=== PATIENT | male | born 1930 | race Caucasian/White ===

== ENCOUNTER 2016-08-24 21:13 | Inpatient (IN) | payer MEDICARE, BC ==
[~2016-08-24] VITALS: Ht 167.6 cm; Wt 65.8 kg
[2016-08-24] MEDS ORDERED: CALC600T20 PO (21:37)
[2016-08-24] MEDS ORDERED: AMLO5TAB2 PO (21:37)
[2016-08-24] MEDS ORDERED: POLY17PO4 PO (21:37)
[2016-08-24] MEDS ORDERED: CHOL10002 PO (21:37)
[2016-08-24] MEDS ORDERED: OMEG-11 PO (21:37)
[2016-08-24] MEDS ORDERED: BRIM5DRO3 EACHEYE (21:37)
[2016-08-24] MEDS ORDERED: BENA40TA2 PO (21:37)
[2016-08-24] MEDS ORDERED: FURO20TA4 PO (21:37)
[2016-08-24] MEDS ORDERED: DORZ10DR11 EACHEYE (21:37)
[2016-08-24] MEDS ORDERED: SIMV10TA6 PO (21:37)
[2016-08-24] MEDS ORDERED: BRIM5DRO3 LEFTEYE (21:37)
[2016-08-24] MEDS ORDERED: ASPI81TA2 PO (21:37)
[2016-08-24] MEDS ORDERED: MULT-213 PO (21:37)
[2016-08-24] MEDS ORDERED: DORZ10DR8 LEFTEYE (21:37)
[2016-08-24] MEDS ORDERED: SENN-18 PO (21:37)
[2016-08-24] MEDS ORDERED: PRED5DRO3 LEFTEYE (21:37)
[2016-08-24 21:45] LABS: BASOPHILS % (AUTO) 0.6 % (0.0-2.0); EOSINOPHILS # (AUTO) 0.3 /CMM (0.0-0.7); EOSINOPHILS % (AUTO) 5.3 % (0.0-6.0); HEMATOCRIT 43 % (39-51); HEMOGLOBIN 14.8 g/dL (13.5-17.5); LYMPHOCYTES # (AUTO) 0.8 /CMM (0.8-4.8); LYMPHOCYTES % (AUTO) 12.9 % (20.0-44.0); MEAN CORPUSCULAR HEMOGLOBIN 35 PG (26.0-33.0); MEAN CORPUSCULAR HGB CONC 34 g/dl (31.0-36.0); MEAN CORPUSCULAR VOLUME 102 fL (80-96); MONOCYTES # (AUTO) 0.7 /CMM (0.1-1.30); MONOCYTES % (AUTO) 10.6 % (2.0-12.0); NEUTROPHILS # (AUTO) 4.5 /CMM (1.8-8.9); NEUTROPHILS % (AUTO) 70.6 % (43.0-81.0); PLATELET COUNT (AUTO) 192 /CMM (150-450); RDW COEFFICIENT OF VARIATION 13.6 (11.5-15.0); RED BLOOD CELL COUNT(AUTO) 4.26 MIL/uL (4.5-6.0); WHITE BLOOD COUNT (AUTO) 6.4 K/uL (4.3-11.0)
[2016-08-24 21:57] LABS: CALCIUM, SERUM 9.6 mg/dL (8.5-10.1); CARBON DIOXIDE 30 mmol/L (21-32); CHLORIDE 104 mmol/L (98-107); GLUCOSE 105 mg/dL (74-106); POTASSIUM 3.8 mmol/L (3.5-5.1); SODIUM SERUM 143 mmol/L (136-145); UREA NITROGEN, BLOOD 17 mg/dL (7-18)
[2016-08-24 22:03] LABS: ALANINE AMINOTRANSFERASE 25 U/L (12-78); ALKALINE PHOSPHATASE 73 U/L (46-116); ASPARTATE AMINOTRANSFERASE 26 U/L (15-37); BILIRUBIN,DIRECT 0.1 mg/dL (0.0-0.2); BILIRUBIN,TOTAL 0.7 mg/dL (0.2-1.0); TOTAL PROTEIN, SERUM 7.8 g/dL (6.4-8.2)
[2016-08-24 22:07] LABS: INR 1.03 (0.87-1.13)
[2016-08-24 22:56] LABS: SERUM AMMONIA 19 umol/L (11-32); TROPONIN I < 0.017 ng/mL (0.00-0.056)
[2016-08-24 23:27] LABS: APPEARANCE,URINE CLEAR (CLEAR); BILIRUBIN,URINE NEGATIVE (NEGATIVE); BLOOD, URINE TRACE-INTA Ery/uL (NEGATIVE); COLOR,URINE YELLOW (YELLOW); KETONES,URINE NEGATIVE (NEGATIVE); LEUKOCYTE ESTERASE ,URINE NEGATIVE (NEGATIVE); NITRITE, URINE NEGATIVE (NEGATIVE); PROTEIN,URINE NEGATIVE (NEGATIVE); UGLUCOSE NEGATIVE (NEGATIVE); UROBILINOGEN,URINE 0.2 EU/dL (0.2)
[2016-08-24 23:43] LABS: BACTERIA,URINE None seen /HPF (None Seen); HYALINE CASTS, URINE Rare /LPF (None Seen); SQUAMOUS EPITHELIAL CELL,UR Rare /HPF (None Seen); URINE AMORPHOUS URATE Moderate /HPF (None Seen); WBC,URINE NONE SEEN /HPF (0-3)
[2016-08-25] VITALS (8 sets, daily range): BP systolic 120–141; BP diastolic 62–73
[2016-08-25] MEDS ORDERED: ACETAMINOPHEN 325 MG TABLET PO PRN (01:00)
[2016-08-25] MEDS ORDERED: Z GUARD REMEDY 2 OZ OINT TP PRN (01:00)
[2016-08-25] MEDS ORDERED: ZOLPIDEM TARTRATE 5 MG TABLET PO PRN (01:00)
[2016-08-25] MEDS ORDERED: SENNOSIDES 8.6 MG TABLET PO PRN (01:00)
[2016-08-25] MEDS ORDERED: MAGNESIUM HYDROXIDE 30 ML UDC PO PRN (01:00)
[2016-08-25] MEDS ORDERED: ONDANSETRON HCL/PF 4 MG/2 ML VIAL IVP PRN (01:00)
[2016-08-25] MEDS ORDERED: MAG HYDROX/AL HYDROX/SIMETH 30 ML UDC PO PRN (01:00)
[2016-08-25] MEDS ORDERED: HYDROCODONE/APAP 5/325MG 1 EACH TABLET ONE (01:58)
[2016-08-25] MEDS ORDERED: LATA2.5D7 EACHEYE (03:27)
[2016-08-25 04:27] LABS: BASOPHILS % (AUTO) 0.3 % (0.0-2.0); EOSINOPHILS # (AUTO) 0.2 /CMM (0.0-0.7); HEMATOCRIT 43 % (39-51); HEMOGLOBIN 14.6 g/dL (13.5-17.5); LYMPHOCYTES # (AUTO) 0.9 /CMM (0.8-4.8); LYMPHOCYTES % (AUTO) 9.4 % (20.0-44.0); MEAN CORPUSCULAR HEMOGLOBIN 35 PG (26.0-33.0); MEAN CORPUSCULAR HGB CONC 34 g/dl (31.0-36.0); MEAN CORPUSCULAR VOLUME 102 fL (80-96); MONOCYTES # (AUTO) 0.8 /CMM (0.1-1.30); MONOCYTES % (AUTO) 8.1 % (2.0-12.0); NEUTROPHILS # (AUTO) 7.9 /CMM (1.8-8.9); NEUTROPHILS % (AUTO) 80.2 % (43.0-81.0); PLATELET COUNT (AUTO) 180 /CMM (150-450); RED BLOOD CELL COUNT(AUTO) 4.22 MIL/uL (4.5-6.0); WHITE BLOOD COUNT (AUTO) 9.9 K/uL (4.3-11.0)
[2016-08-25] MEDS: HYDROCODONE/APAP 5/325MG 1 EACH TABLET PO PRN ×2 (04:44→21:38)
[2016-08-25 04:54] LABS: CALCIUM, SERUM 9.3 mg/dL (8.5-10.1); CARBON DIOXIDE 27 mmol/L (21-32); CHLORIDE 104 mmol/L (98-107); CREATININE 0.9 mg/dL (0.6-1.3); GLUCOSE 123 mg/dL (74-106); MAGNESIUM 1.9 mg/dL (1.8-2.4); PHOSPHORUS 2.3 mg/dL (2.5-4.9); POTASSIUM 3.4 mmol/L (3.5-5.1); SODIUM SERUM 142 mmol/L (136-145); UREA NITROGEN, BLOOD 16 mg/dL (7-18)
[2016-08-25] MEDS ORDERED: FUROSEMIDE 20 MG TABLET PO SCH (09:00)
[2016-08-25] MEDS: BENAZEPRIL HCL 20 MG TABLET PO SCH (09:00)
[2016-08-25] MEDS: CHOLECALCIFEROL 1,000 UNIT TABLET (VIT D3) PO SCH (09:00)
[2016-08-25] MEDS ORDERED: DORZOLAMIDE OPTH 2% 10 ML BOTTLE LEFTEYE SCH (09:00)
[2016-08-25] MEDS ORDERED: POTASSIUM PHOSPHATE MM 15 MMOL in IV D5W 250 ML IV SCH (09:00)
[2016-08-25] MEDS: AMLODIPINE BESYLATE 5 MG TABLET PO SCH (09:00)
[2016-08-25] MEDS ORDERED: IV SET PRIMARY PUMP SET 1 EA INFUS.SET MC ONE ×2 (09:59→21:23)
[2016-08-25] MEDS: CALCIUM CARBONATE 500 MG TAB.CHEW PO SCH (10:00)
[2016-08-25] MEDS ORDERED: TIMOLOL MAL/DORZOLAM HCL OPHTH 10 ML BOTTLE EACHEYE SCH (10:00)
[2016-08-25] MEDS: PANTOPRAZOLE 40 MG TABLET.DR PO SCH (10:16)
[2016-08-25] MEDS: POLYETHYLENE GLYCOL 3350 17 GM POWD.PACK PO SCH (10:16)
[2016-08-25] MEDS: POTASSIUM PHOSPHATE MM 7.5 MMOL in IV D5W 100 ML IV SCH ×2 (10:19→12:55)
[2016-08-25 10:52] LABS: THYROID STIMULATING HORMONE 4.534 uIU/mL (0.358-3.74)
[2016-08-25] MEDS ORDERED: POTASSIUM CHLORIDE 20 MEQ TAB.PRT.SR PO ONE (11:00)
[2016-08-25] MEDS ORDERED: BRIMONIDINE TARTRATE OPHT SOLN 5 ML BOTTLE EACHEYE SCH (11:30)
[2016-08-25] MEDS ORDERED: prednisoLONE ACETATE OPHT DROPS 5 ML BOTTLE LEFTEYE SCH (12:00)
[2016-08-25] MEDS: DORZOLAMIDE OPTH 2% 10 ML BOTTLE LEFTEYE SCH (14:27)
[2016-08-25] MEDS: BRIMONIDINE TARTRATE OPHT SOLN 5 ML BOTTLE LEFTEYE SCH (14:27)
[2016-08-25] MEDS ORDERED: TIMOLOL XX SCH (19:00)
[2016-08-25] MEDS ORDERED: DORZOLAMIDE XX SCH (19:00)
[2016-08-25] MEDS: TIMOLOL MAL/DORZOLAM HCL OPHTH 10 ML BOTTLE EACHEYE SCH (19:42)
[2016-08-25] MEDS: IV NS 0.9% 1,000 ML IV PRN (21:38)
[2016-08-25] MEDS: BRIMONIDINE TARTRATE OPHT SOLN 5 ML BOTTLE EACHEYE SCH (21:59)
[2016-08-25] MEDS ORDERED: ASPIRIN 81 MG TAB.CHEW PO SCH (22:00)
[2016-08-25] MEDS ORDERED: SIMVASTATIN 10 MG TABLET PO SCH (22:00)
[2016-08-25] MEDS ORDERED: LATANOPROST EYE DROP 0.005% 2.5 ML BOTTLE EACHEYE SCH (23:00)
[2016-08-26] VITALS: BP 123/78
[2016-08-26 04:00] VITALS: BP 138/63
[2016-08-26] MEDS: IV NS 0.9% 1,000 ML IV PRN (04:13)
[2016-08-26] MEDS: BRIMONIDINE TARTRATE OPHT SOLN 5 ML BOTTLE EACHEYE SCH (06:47)
[2016-08-26] MEDS: TIMOLOL MAL/DORZOLAM HCL OPHTH 10 ML BOTTLE EACHEYE SCH (06:47)
[2016-08-26] MEDS ORDERED: prednisoLONE ACETATE OPHT DROPS 5 ML BOTTLE LEFTEYE SCH (07:00)
[2016-08-26 08:00] VITALS: BP 140/75
[2016-08-26] MEDS: POLYETHYLENE GLYCOL 3350 17 GM POWD.PACK PO SCH (08:01)
[2016-08-26] MEDS: BENAZEPRIL HCL 20 MG TABLET PO SCH (08:01)
[2016-08-26] MEDS: PANTOPRAZOLE 40 MG TABLET.DR PO SCH (08:01)
[2016-08-26] MEDS: CALCIUM CARBONATE 500 MG TAB.CHEW PO SCH (08:02)
[2016-08-26] MEDS: AMLODIPINE BESYLATE 5 MG TABLET PO SCH (08:02)
[2016-08-26] MEDS: CHOLECALCIFEROL 1,000 UNIT TABLET (VIT D3) PO SCH (08:03)
[2016-08-26 08:30] VITALS: BP 135/66
[2016-08-26 08:33] VITALS: BP 126/62
[2016-08-26 08:35] VITALS: BP 117/64
[2016-08-26 08:50] LABS: BASOPHILS % (AUTO) 0.4 % (0.0-2.0); EOSINOPHILS # (AUTO) 0.4 /CMM (0.0-0.7); EOSINOPHILS % (AUTO) 5.5 % (0.0-6.0); HEMATOCRIT 44 % (39-51); HEMOGLOBIN 14.9 g/dL (13.5-17.5); LYMPHOCYTES # (AUTO) 0.9 /CMM (0.8-4.8); LYMPHOCYTES % (AUTO) 13.8 % (20.0-44.0); MEAN CORPUSCULAR HEMOGLOBIN 35 PG (26.0-33.0); MEAN CORPUSCULAR HGB CONC 34 g/dl (31.0-36.0); MEAN CORPUSCULAR VOLUME 103 fL (80-96); MONOCYTES # (AUTO) 0.8 /CMM (0.1-1.30); MONOCYTES % (AUTO) 12.2 % (2.0-12.0); NEUTROPHILS # (AUTO) 4.5 /CMM (1.8-8.9); NEUTROPHILS % (AUTO) 68.1 % (43.0-81.0); PLATELET COUNT (AUTO) 180 /CMM (150-450); RDW COEFFICIENT OF VARIATION 13.4 (11.5-15.0); RED BLOOD CELL COUNT(AUTO) 4.24 MIL/uL (4.5-6.0); WHITE BLOOD COUNT (AUTO) 6.6 K/uL (4.3-11.0)
[2016-08-26] MEDS ORDERED: MULTIVITAMINS W-MINERALS 1 TAB TABLET PO SCH (09:00)
[2016-08-26 09:16] LABS: ALANINE AMINOTRANSFERASE 23 U/L (12-78); ALBUMIN 3.6 g/dL (3.4-5.0); ALKALINE PHOSPHATASE 70 U/L (46-116); ASPARTATE AMINOTRANSFERASE 24 U/L (15-37); BILIRUBIN,TOTAL 0.8 mg/dL (0.2-1.0); CALCIUM, SERUM 8.7 mg/dL (8.5-10.1); CARBON DIOXIDE 28 mmol/L (21-32); CHLORIDE 108 mmol/L (98-107); CREATININE 0.9 mg/dL (0.6-1.3); GLUCOSE 104 mg/dL (74-106); MAGNESIUM 1.8 mg/dL (1.8-2.4); PHOSPHORUS 2.2 mg/dL (2.5-4.9); POTASSIUM 3.6 mmol/L (3.5-5.1); SODIUM SERUM 145 mmol/L (136-145); TOTAL PROTEIN, SERUM 7.2 g/dL (6.4-8.2); UREA NITROGEN, BLOOD 14 mg/dL (7-18)
[2016-08-26 10:46] LABS: TROPONIN I < 0.017 ng/mL (0.00-0.056)
[2016-08-26] MEDS ORDERED: IBUPROFEN 200 MG TABLET PO PRN (12:30)
[2016-08-26] MEDS: DORZOLAMIDE OPTH 2% 10 ML BOTTLE LEFTEYE SCH (14:00)
[2016-08-26] MEDS: BRIMONIDINE TARTRATE OPHT SOLN 5 ML BOTTLE LEFTEYE SCH (14:00)
[2016-08-26] MEDS ORDERED: NEUTRA PHOS 1 POWD.PACKET PO ONE (15:30)
== END 2016-08-26 17:05 | disposition home or self-care (01) | DRG 73 ==
LOC: ER 21:15 → TELE 08-25 00:54 → MED 08-26 10:04
PROVIDERS: ADMIT Family Medicine; ATTEND Family Medicine
DX: G90.8 Other disorders of autonomic nervous system (principal); N17.0 Acute kidney failure with tubular necrosis; I50.32 Chronic diastolic (congestive) heart failure; E78.5 Hyperlipidemia, unspecified; H40.9 Unspecified glaucoma; E87.6 Hypokalemia; E86.0 Dehydration; D75.89 Other specified diseases of blood and blood-forming organs; E83.39 Other disorders of phosphorus metabolism; I11.0 Hypertensive heart disease with heart failure; Z79.899 Other long term (current) drug therapy; Z95.0 Presence of cardiac pacemaker; M54.2 Cervicalgia; M62.58 Muscle wasting and atrophy, not elsewhere classified, other site; R26.9 Unspecified abnormalities of gait and mobility
CPT/HCPCS: 36415; 70450-TC; 71010-TC; 72074-TC; 72125-TC; 73030-TC; 80048-TC; 80053-TC; 80061-TC; 80076-TC; 80305; 81000-TC; 82140-TC; 82306; 83735-TC; 84100-TC; 84439-TC; 84443-TC; 84484-TC; 85025-TC; 85730-TC; 87081-TC; 87086-TC; 93307-TC; 93880-TC; 97001-TC; 97116-TC; 97530-TC; A4606; G0480; J3490; J7030; J7060; L0172; Z7610